=== PATIENT | female | born 1985 | race Asian ===

== ENCOUNTER 2017-10-24 20:01 | Emergency (ER) | payer BC, OTHER | END 2017-10-24 20:31 | disposition left against medical advice (07) | LOC: MW.ED 20:01 | DX: Z53.21 Procedure and treatment not carried out due to patient leaving prior to being seen by health care provider (principal) ==

== ENCOUNTER 2017-12-06 15:56 | Emergency (ER) | payer BC, OTHER ==
--- NOTE | 2017-12-06 16:17 | EDM.PDOC ---
ED HPI GENERAL MEDICAL PROBLEM - General Chief Complaint: Gastrointestinal Problem Stated Complaint: BLEEDING FROM RECTUM Time Seen by Provider: 12/06/17 16:10 - History of Present Illness INITIAL COMMENTS - FREE TEXT/NARRATIVE: HISTORY AND PHYSICAL: History of present illness: Patient 32-year-old female no significant past medical history presents with a concern of bloody stool over the last 3 days she states she's had 2-3 episodes daily that's blood mixed in with the stool there's been no chest pain shortness of breath no abdominal pain been no trauma and no other complaints. She denies any bruising bleeding diathesis denies anticoagulants or antiplatelet medication Review of systems: As per history of present illness and below otherwise all systems reviewed and negative. Past medical history: As per history of present illness and as reviewed below otherwise noncontributory. Surgical history: As per history of present illness and as reviewed below otherwise noncontributory. Social history: No reported history of drug or alcohol abuse. Family history: As per history of present illness and as reviewed below otherwise noncontributory. Physical exam: HEENT: Atraumatic, normocephalic, pupils reactive, negative for conjunctival pallor or scleral icterus, mucous membranes moist, throat clear, neck supple, nontender, trachea midline. Lungs: Clear to auscultation, breath sounds equal bilaterally, chest nontender. Heart: S1S2, regular, negative for clicks, rubs, or JVD. Abdomen: Soft, nondistended, nontender. Negative for masses or hepatosplenomegaly. Negative for costovertebral tenderness. Pelvis: Stable nontender. Genitourinary: Deferred. Rectal: Deferred. Extremities: Atraumatic, negative for cords or calf pain. Neurovascular unremarkable. Neuro: Awake, alert, oriented. Cranial nerves II through XII unremarkable. Cerebellum unremarkable. Motor and sensory unremarkable throughout. Exam nonfocal. Diagnostics: CBC CMP PT/INR UA hCG Therapeutics: None Impression: # 1 history of hematochezia Definitive disposition and diagnosis as appropriate pending reevaluation and review of above. ED ROS GENERAL - Review of Systems Review Of Systems: ROS reveals no pertinent complaints other than HPI. ED EXAM, GENERAL - Physical Exam Exam: See Below (dictation) Course - Orders/Labs/Meds Orders: Active Orders 24 hr Category Date Time Status CBC WITH AUTO DIFF [HEME] Stat Lab 12/06/17 16:14 Ordered COMPREHENSIVE METABOLIC PN,CMP [CHEM] Stat Lab 12/06/17 16:14 Ordered HCG QUANTITATIVE,SERUM [CHEM] Stat Lab 12/06/17 16:14 Ordered INR,PT,PROTHROMBIN TIME [COAG] Stat Lab 12/06/17 16:14 Ordered UA W/MICROSCOPIC [URIN] Stat Lab 12/06/17 16:14 Ordered Departure - Departure Time of Disposition: 16:16 Disposition: Home, Self-Care 01 Condition: Good Clinical Impression: History of GI bleed - Discharge Information Referrals: PCP,None [Primary Care Provider] - Additional Instructions: The following information is given to patients seen in the emergency department who are being discharged to home. This information is to outline your options for follow-up care. We provide all patients seen in our emergency department with a follow-up referral. The need for follow-up, as well as the timing and circumstances, are variable depending upon the specifics of your emergency department visit. If you don't have a primary care physician on staff, we will provide you with a referral. We always advise you to contact your personal physician following an emergency department visit to inform them of the circumstance of the visit and for follow-up with them and/or the need for any referrals to a consulting specialist. The emergency department will also refer you to a specialist when appropriate. This referral assures that you have the opportunity for followup care with a specialist. All of these measure are taken in an effort to provide you with optimal care, which includes your followup. Under all circumstances we always encourage you to contact your private physician who remains a resource for coordinating your care. When calling for followup care, please make the office aware that this follow-up is from your recent emergency room visit. If for any reason you are refused follow-up, please contact the [facility] emergency department at and asked to speak to the emergency department charge nurse. [facility] - General Surgery Professional Building [address] [place] [address], [address] [place] [address] Follow-up primary medical doctor and general surgery above call to schedule appointment return as needed - My Orders Last 24 Hours: My Active Orders 12/06/17 16:14 CBC WITH AUTO DIFF [HEME] Stat COMPREHENSIVE METABOLIC PN,CMP [CHEM] Stat HCG QUANTITATIVE,SERUM [CHEM] Stat INR,PT,PROTHROMBIN TIME [COAG] Stat UA W/MICROSCOPIC [URIN] Stat - Assessment/Plan Last 24 Hours: My Active Orders 12/06/17 16:14 CBC WITH AUTO DIFF [HEME] Stat COMPREHENSIVE METABOLIC PN,CMP [CHEM] Stat HCG QUANTITATIVE,SERUM [CHEM] Stat INR,PT,PROTHROMBIN TIME [COAG] Stat UA W/MICROSCOPIC [URIN] Stat
[2017-12-06 16:56] LABS: CHLORIDE,CL 106 mmol/L (98-110); SODIUM,NA 140 mmol/L (136-146)
== END 2017-12-06 17:44 | disposition home or self-care (01) ==
LOC: MW.ED 15:56
DX: K92.2 Gastrointestinal hemorrhage, unspecified (principal)
CPT/HCPCS: 36415; 80053; 81001; 84702; 85025; 85610; 99282; 99283

== ENCOUNTER 2018-01-28 11:40 | Day surgery (SDC) | payer BC ==
[~2018-01-28 11:40] MED LIST: Lactated Ringers 1,000 ML IV SCH; Sodium Chloride 0.9% 10 ML Syringe FLUSH PRN; Sodium Chloride 0.9% 2.5 ML Syringe FLUSH PRN
[2018-01-28] MEDS ORDERED: Propofol 200 MG/20 ML SDV ONE (12:41)
[2018-01-28] MEDS ORDERED: fentaNYL 100 MCG/2 ML SDV ONE (12:41)
[2018-01-28] MEDS ORDERED: Midazolam 1 MG/ML 2 ML SDV ONE (12:41)
[2018-01-28] MEDS ORDERED: Lidocaine 2% 5 ML SDV ONE (12:41)
--- NOTE | 2018-01-28 13:21 | PCM.PREANE ---
Preanesthetic Assessment - Anesthesia/Transfusion/Family Hx Anesthesia History: Prior Anesthesia Without Reaction Family History of Anesthesia Reaction: No Transfusion History: No Prior Transfusion(s) Intubation History: Unknown - Review of Systems General: No Symptoms Pulmonary: No Symptoms Cardiovascular: No Symptoms Gastrointestinal: Hematochezia Neurological: No Symptoms Other: Reports: None - Physical Assessment NPO Status Date: 01/28/18 NPO Status Time: 09:00 O2 Sat by Pulse Oximetry: 99 Respiratory Rate: 16 Vital Signs: Last Vital Signs Temp 35.8 C 01/28/18 12:10 Pulse 48 L 01/28/18 12:10 Resp 16 01/28/18 12:10 BP 93/55 L 01/28/18 12:10 Pulse Ox 99 01/28/18 12:10 Height: 1.55 m Weight: 52.617 kg ASA Class: 1 Mental Status: Alert & Oriented x3 Airway Class: Mallampati = 1 Dentition: Reports: Normal Dentition Thyro-Mental Finger Breadths: 3 Mouth Opening Finger Breadths: 3 ROM/Head Extension: Full Lungs: Clear to Auscultation, Normal Respiratory Effort Cardiovascular: Regular Rate, Regular Rhythm - Lab Values: Laboratory Last Values Urine HCG, Qual NEGATIVE (NEGATIVE) 01/28/18 11:45 - Allergies Allergies/Adverse Reactions: Allergies Allergy/AdvReac Type Severity Reaction Status Date / Time No Known Allergies Allergy Verified 01/25/18 10:37 - Blood Blood Available: No - Anesthesia Plan Pre-Op Medication Ordered: None - Acknowledgements Anesthesia Type Planned: MAC Pt an Appropriate Candidate for the Planned Anesthesia: Yes Alternatives and Risks of Anesthesia Discussed w Pt/Guardian: Yes Pt/Guardian Understands and Agrees with Anesthesia Plan: Yes PreAnesthesia Questionnaire HEENT History: Reports: None Cardiovascular History: Reports: None Respiratory History: Reports: None Gastrointestinal History: Reports: Other (See Below) (hematochesia) Genitourinary History: Reports: None MACHINERY ENGINEER History: Reports: None Musculoskeletal History: Reports: None Neurological History: Reports: None Psychiatric History: Reports: None Endocrine/Metabolic History: Reports: None Hematologic History: Reports: None Immunologic History: Reports: None Oncologic (Cancer) History: Reports: None Dermatologic History: Reports: Other (See Below) Other Dermatologic History: dry patches on both arms - Past Surgical History Head Surgeries/Procedures: Reports: None HEENT Surgical History: Reports: None Cardiovascular Surgical History: Reports: None Respiratory Surgical History: Reports: None GI Surgical History: Reports: None Female Surgical History: Reports: Other (See Below) Other Female Surgeries/Procedures: exploratory laparoscopy for infertility Endocrine Surgical History: Reports: None Neurological Surgical History: Reports: None Musculoskeletal Surgical History: Reports: None Oncologic Surgical History: Reports: None Dermatological Surgical History: Reports: None - SUBSTANCE USE Smoking Status *Q: Never Smoker Second Hand Smoke Exposure: No Recreational Drug Use History: No - HOME MEDS Home Medications: Home Meds PNV95/Ferrous Fumarate/FA [ Vitamin Tablet] 1 tab PO DAILY 01/25/18 [ History] - CURRENT (IN HOUSE) MEDS Current Meds: Current Medications Lactated Ringer's (Ringers, Lactated) 1,000 mls @ 125 mls/hr IV ASDIRECTED TATYANA Sodium Chloride (Saline Flush) 10 ml FLUSH ASDIRECTED PRN PRN Reason: Keep Vein Open Sodium Chloride (Saline Flush) 2.5 ml FLUSH ASDIRECTED PRN PRN Reason: Keep Vein Open Sodium Chloride (Saline Flush) 10 ml FLUSH ASDIRECTED PRN PRN Reason: Keep Vein Open Sodium Chloride (Saline Flush) 2.5 ml FLUSH ASDIRECTED PRN PRN Reason: Keep Vein Open Discontinued Medications Fentanyl (Sublimaze) Confirm Administered Dose 100 mcg .ROUTE .STK-MED ONE Stop: 01/28/18 12:42 Lidocaine (Xylocaine-Mpf 2%) Confirm Administered Dose 5 ml .ROUTE .STK-MED ONE Stop: 01/28/18 12:42 Midazolam HCl (Versed 1 Mg/Ml) Confirm Administered Dose 2 mg .ROUTE .STK-MED ONE Stop: 01/28/18 12:42 Propofol (Diprivan 20 Ml) Confirm Administered Dose 400 mg .ROUTE .STK-MED ONE Stop: 01/28/18 12:42
[2018-01-28] MEDS ORDERED: Glycopyrrolate 0.2 MG/ML SDV ONE (14:10)
--- NOTE | 2018-01-28 15:27 | PCM.OPNOTE ---
- General Post-Op/Procedure Note Date of Surgery/Procedure: 01/28/18 Operative Procedure(s): Diagnostic colonoscopy Findings: Normal colonoscopy, normal hemorrhoidal tissue Pre Op Diagnosis: bright red bleeding per rectum Post-Op Diagnosis: same Anesthesia Technique: MAC Primary Surgeon: Noa Bell Condition: Good Free Text/Narrative:: Intake & Output 01/28/18 01/28/18 01/28/18 06:59 14:59 22:59 Intake Total 800 Balance 800
--- NOTE | 2018-01-28 22:15 | OR ---
SURGEON: ERMIAS OVALLES MD DATE OF PROCEDURE: 01/28/2018 PREOPERATIVE DIAGNOSIS: Bright red bleeding per rectum. POSTOPERATIVE DIAGNOSIS: Normal colonoscopy. PROCEDURE PERFORMED: Diagnostic colonoscopy. ANESTHESIA: MAC. INSTRUMENT USED: Olympus colonoscope. EXTENT OF EXAM: To the cecum. PREPARATION: Good. LIMITATIONS: None. INDICATIONS FOR EXAMINATION: The patient is a 32-year-old female, who presents with bright red bleeding per rectum. She has been on a strict fiber regimen for the last month and continued to have intermittent bright red bleeding with bowel movements. The decision was made to proceed with a diagnostic colonoscopy. We discussed the procedure, expected perioperative course, and risks including bleeding, infection, damage to surrounding structures including perforation. The patient verbalized understanding and wishes to proceed. PROCEDURE IN DETAIL: The patient was brought into the endoscopy suite and placed in the left lateral decubitus position. A time-out was completed verifying the patient's name, age, date of , allergies, and procedure to be performed. Monitored anesthesia care was induced and continuous oxygen was provided via nasal cannula throughout the procedure. After adequate sedation was achieved, a digital rectal exam was performed. This exam was within normal limits. A well lubricated colonoscope was inserted in the rectum and advanced under direct visualization at the level of the cecum. The cecum was identified by both visual and anatomic landmarks. I attempted to retroflex the scope within the cecum but was unable to do so. The scope was then fully withdrawn while examining the color, texture, anatomy, and integrity of the mucosa from the cecum to the anal canal. The patient was found to have normal colonic mucosa. The scope was then brought into the rectum and retroflexed to allow visualization of the anal canal opening. This appeared normal and a photograph was taken. The scope was then straightened out and fully withdrawn. The cecum to anus time was 7 minutes. The patient tolerated the procedure well and was taken to PACU in stable condition. ENDOSCOPIC DIAGNOSIS: Normal colonoscopy. RECOMMENDATIONS: I visited with the patient in the postoperative care area. She will continue to take fiber and monitor her bowel habits. She will be due for another colonoscopy at the age of 52. JAN MEDEIROS /[id number]
== END 2018-01-28 15:30 | disposition home or self-care (01) ==
LOC: MW.SDS 11:40
PROVIDERS: ATTEND Surgery
DX: K62.5 Hemorrhage of anus and rectum (principal); Z79.899 Other long term (current) drug therapy; Z98.890 Other specified postprocedural states; Z83.79 Family history of other diseases of the digestive system
CPT/HCPCS: 45378; 81025; J2250; J3010; J2704